=== PATIENT | female | born 1975 | race Caucasian/White ===

== ENCOUNTER → 2017-09-22 | Outpatient (CLI) | payer OTHER ==
--- NOTE | 2017-09-22 08:54 | RADIOLOGY REPORT (SQ) ---
EXAM DESCRIPTION: U/S ABDOMEN LIMITED W/O DOP COMPLETED DATE/TIME: 09/22/2017 8:08 am REASON FOR STUDY: EPIGASTRIC PAIN (R10.13) Z98.84 BARIATRIC SURGERY STATUS R10.13 EPIGASTRIC PAIN COMPARISON: None. TECHNIQUE: Dynamic and static grayscale images acquired of the abdomen and recorded on PACS. Additio nal selected color Doppler and spectral images recorded. LIMITATIONS: None. FINDINGS: PANCREAS: No masses. Visualized pancreatic duct normal caliber. LIVER: No masses. Echotexture normal. LIVER VASCULATURE: Normal directional flow of the main portal vein and hepatic veins. GALLBLADDER: No stones. Normal wall thickness. No pericholecystic fluid. ULTRASOUND-DETECTED QUINONEZ'S SIGN: Negative. INTRAHEPATIC DUCTS AND COMMON DUCT: CBD and intrahepatic ducts normal caliber. No filling defects. INFERIOR VENA CAVA: Normal flow. AORTA: No aneurysm. RIGHT KIDNEY: Normal size. Normal echogenicity. No solid or suspicious masses. No hydronephrosis. No calcifications. PERITONEAL AND RIGHT PLEURAL SPACE: No ascites or effusions. OTHER: No other significant findings. IMPRESSION: NORMAL RIGHT UPPER QUADRANT ULTRASOUND. TECHNICAL DOCUMENTATION: JOB ID: [id number] [employer]- All Rights Reserved
--- NOTE | 2017-09-22 11:01 | RADIOLOGY REPORT (SQ) ---
EXAM DESCRIPTION: NM HIDA SCAN WITH CCK COMPLETED DATE/TIME: 09/22/2017 10:20 am REASON FOR STUDY: EPIGASTRIC PAIN (R10.13) Z98.84 BARIATRIC SURGERY STATUS R10.13 EPIGASTRIC PAIN COMPARISON: None. RADIONUCLIDE AND DOSE: DOSAGE RADIONUCLIDE: 5.36 millicuries Tc99m Mebrofenin. DOSAGE CCK: 1.9 micrograms. DOSAGE MORPHINE: Not required. The route of agent administration: Intravenous TECHNIQUE: Serial imaging right upper quadrant up to 60 minutes following injection of radionuclide. CCK injected after gallbladder visualized. LIMITATIONS: None. FINDINGS: LIVER: Normal visualization without areas of photopenia. INTRAHEPATIC BILE DUCTS: Normal size and no delay in visualization. COMMON BILE DUCT: Normal without dilatation. GALLBLADDER: Normal visualization. Calculated ejection fraction of 29%. Normal range is greater th an 35%. PHYSICAL RESPONSE: Patients presenting complaint was reproduced. OTHER: No other significant finding. IMPRESSION: There is slightly decreased gallbladder ejection fraction of 29% where 35% or greater is considered normal. TECHNICAL DOCUMENTATION: JOB ID: [id number] [employer]- All Rights Reserved
== END ==
LOC: RAD 07:22
PROVIDERS: ATTEND Surgery
DX: Z98.84 Bariatric surgery status (principal); R10.13 Epigastric pain
CPT/HCPCS: 76705; 78227; A9537; Q9969; J2805

== ENCOUNTER 2018-04-01 11:22 | Emergency (ER) | payer OTHER ==
[2018-04-01] MEDS ORDERED: MORPHINE SULFATE 10 MG/ML INJ IV ONE ×2 (11:56→12:24)
--- NOTE | 2018-04-01 11:56 | ER Document Report ---
ED Medical Screen (RME) - General Chief Complaint: Abdominal Pain Stated Complaint: ABDOMINAL PAIN Time Seen by Provider: 04/01/18 11:46 Notes: Patient has been having left upper quadrant abdominal pain now for approximately 3 days. Has a flat band. Recently had it re-inflated. Her bariatric surgeon is Dr. Flores in [place]. Has been having some chills but uncertain whether or not she has fevers. Nausea but no vomiting. No change in stool patterns. Had her gallbladder removed in September and they did a check of everything it looked okay. I have greeted and performed a rapid initial assessment of this patient. A comprehensive ED assessment and evaluation of the patient, analysis of test results and completion of the medical decision making process will be conducted by additional ED providers. TRAVEL OUTSIDE OF THE [place] IN LAST 30 DAYS: No - Related Data Allergies/Adverse Reactions: No Known Allergies Allergy (Unverified 04/01/18 11:23) Past Medical History - General Information source: Patient - Social History Chew tobacco use (# tins/day): No Frequency of alcohol use: None Drug Abuse: None Lives with: Spouse/Significant other Family history: Reviewed & Not Pertinent Renal/ Medical History: Denies: Hx Peritoneal Dialysis Review of Systems - Review of Systems Constitutional: Chills, Fever. denies: Malaise, Weakness EENT: No symptoms reported. denies: Eye pain Cardiovascular: No symptoms reported Gastrointestinal: See HPI, Abdominal pain, Nausea. denies: Diarrhea, Vomiting Genitourinary: No symptoms reported Female Genitourinary: No symptoms reported Musculoskeletal: No symptoms reported Skin: No symptoms reported Physical Exam - Vital signs Vitals: Temp Pulse Resp BP Pulse Ox 98.5 F 97 18 131/85 H 96 04/01/18 11:29 04/01/18 11:29 04/01/18 11:29 04/01/18 11:29 04/01/18 11:29 Interpretation: Tachycardic - Notes Notes: Uncomfortable appearing - Respiratory Respiratory status: No respiratory distress Chest status: Nontender Breath sounds: Normal Chest palpation: Normal - Cardiovascular Rhythm: Tachycardia Heart sounds: Normal auscultation Murmur: No - Abdominal Inspection: Normal Distension: No distension Bowel sounds: Normal Tenderness: Tender, Other - Interest in the left upper quadrant epigastric region Organomegaly: No organomegaly - Neurological Cognition: Normal Orientation: AAOx4 Speech: Normal Course - Vital Signs Vital signs: Temp Pulse Resp BP Pulse Ox 98.5 F 97 18 131/85 H 96 04/01/18 11:29 04/01/18 11:29 04/01/18 11:29 04/01/18 11:29 04/01/18 11:29 Doctor's Discharge - Discharge Referrals: LETY FLORES [Primary Care Provider] - Follow up as needed
[2018-04-01] MEDS ORDERED: NORMAL SALINE 1000 ML 1,000 ML IV ONE (11:57)
[2018-04-01] MEDS ORDERED: ONDANSETRON HCL INJ/PF 4 MG/2 ML SDV IV ONE (11:57)
[2018-04-01 12:10] LABS: ABSOLUTE EOSINOPHILS # (AUTO) 0.1 10^3/uL (0.0-0.6); ABSOLUTE LYMPHOCYTES (AUTO) 1.8 10^3/uL (0.5-4.7); ABSOLUTE MONOCYTES (AUTO) 1.5 10^3/uL (0.1-1.4); ABSOLUTE NEUT (AUTO) 9.7 10^3/uL (1.7-8.2); BASOPHILS % (AUTO) 0.3 % (0-2); EOSINOPHILS % (AUTO) 1.1 % (0-6); HEMATOCRIT 39.9 % (36.0-47.0); HEMOGLOBIN 13.2 g/dL (12.0-15.5); LYMPHOCYTES % (AUTO) 13.6 % (13-45); MEAN CORPUSCULAR HEMOGLOBIN 29.5 pg (27.0-33.4); MEAN CORPUSCULAR HGB CONC 33.2 g/dL (32.0-36.0); MEAN CORPUSCULAR VOLUME 89 fl (80-97); MONOCYTES % (AUTO) 11.2 % (3-13); PLATELET COUNT 360 10^3/uL (150-450); RED BLOOD COUNT 4.49 10^6/uL (3.72-5.28); RED CELL DISTRIBUTION WIDTH 13.8 % (11.5-14.0); SEGMENTED NEUTROPHILS % (AUTO) 73.8 % (42-78); TOTAL CELLS COUNTED % (AUTO) 100 %; WHITE BLOOD COUNT 13.2 10^3/uL (4.0-10.5)
--- NOTE | 2018-04-01 12:16 | ER Document Report ---
ED GI/ - General Chief Complaint: Abdominal Pain Stated Complaint: ABDOMINAL PAIN Time Seen by Provider: 04/01/18 11:46 Information source: Patient Notes: Patient is a 42-year-old female with past medical history of lap band surgery around 4 years ago as well as a cholecystectomy this past September who presents with 3 days of left upper quadrant nonradiating abdominal "sharp pain". She denies any aggravating or relieving factors. She does state it slightly improves when she lays flat. She denies any nausea, vomiting, fevers, dysuria, or lower abdominal pain. Patient is followed by Dr. Daniels at [place]. Patient states 1 year ago she had similar pain that ended up being her gallbladder. She states at that time she had an endoscopy showing that the band was awaiting a little bit into the lumen of the stomach. Her GI surgeon has been following this. TRAVEL OUTSIDE OF THE [place] IN LAST 30 DAYS: No - HPI Patient complains to provider of: Abdominal pain Onset: Other - See above Timing/Duration: Gradual Quality of pain: Other - See above Severity at maximum: Moderate Severity in ED: Mild Pain Level: 3 Location: Other - See above Vaginal bleeding (Compared to normal period): None Sexual history: Inactive Associated symptoms: Other - See above Exacerbated by: Denies Relieved by: Denies Similar symptoms previously: No Recently seen / treated by doctor: No - Related Data Allergies/Adverse Reactions: No Known Allergies Allergy (Unverified 04/01/18 11:23) Past Medical History - General Information source: Patient - Social History Smoking Status: Unknown if Ever Smoked Cigarette use (# per day): No Chew tobacco use (# tins/day): No Smoking Education Provided: No Frequency of alcohol use: None Drug Abuse: None Lives with: Spouse/Significant other Family History: Reviewed & Not Pertinent Patient has suicidal ideation: No Patient has homicidal ideation: No Renal/ Medical History: Denies: Hx Peritoneal Dialysis Review of Systems - Review of Systems Constitutional: denies: Fever EENT: denies: Eye discharge, Nose discharge Cardiovascular: denies: Chest pain, Palpitations Respiratory: denies: Short of breath Gastrointestinal: denies: Vomiting Genitourinary: denies: Dysuria Musculoskeletal: denies: Leg swelling Skin: Other - no hives. denies: Rash Neurological/Psychological: Other - no slurred speech -: Yes All other systems reviewed and negative Physical Exam - Vital signs Vitals: Temp Pulse Resp BP Pulse Ox 98.5 F 97 18 131/85 H 96 04/01/18 11:29 04/01/18 11:29 04/01/18 11:29 04/01/18 11:29 04/01/18 11:29 Interpretation: Normal Notes: Reviewed vital signs and nursing note as charted by RN. CONSTITUTIONAL: Alert and oriented and responds appropriately to questions. Well -appearing; well-nourished HEAD: Normocephalic; atraumatic EYES: Sclerae non-icteric CARD: Regular rate and rhythm; no murmurs, no clicks, no rubs, no gallops; symmetric distal pulses RESP: Normal chest excursion without splinting or tachypnea; breath sounds clear and equal bilaterally ABD/GI: Normal bowel sounds; non-distended; soft, tender to palpation mostly of the left upper quadrant without any obvious rebound or guarding. No palpable masses or abdominal bruits present. No lower abdominal tenderness BACK: The back appears normal and is non-tender to palpation, there is no CVA tenderness EXT: Normal ROM in all joints; non-tender to palpation; no cyanosis, no effusions, no edema SKIN: Normal color for age and race; warm; no acute lesions noted NEURO: Moves all extremities equally; Motor and sensory function intact PSYCH: The patient's mood and manner are appropriate. Grooming and personal hygiene are appropriate. Course - Re-evaluation Re-evalutation: 04/01/18 12:23 Given the above history and physical examination we have ordered basic labs, liver panel, lipase, CT scan of the abdomen and pelvis, and pain medications. We will reassess the patient. I do not believe any other imaging is necessary at this moment. 04/01/18 13:[address] scan of the abdomen and pelvis as recorded. I have called to speak with Dr. Daniels and the on-call surgeon Dr. Hernandez answer the phone. I have read to hold the CT scan report and laboratory results. She asked me to ask the patient if she would like to come to see the surgeon at [facility] today or come as an outpatient to the office on Wednesday or Wednesday. The patient states she is feeling much better and does not want to go to the hospital today but will follow up on Wednesday or Wednesday. Dr. Hernandez has taken the patient's information and will have the patient call on Wednesday morning. She has given me a new address for the location as they have recently moved. Strict return precautions have been explained to the patient and she understands these. is in agreement with this plan. - Vital Signs Vital signs: Temp Pulse Resp BP Pulse Ox 98.5 F 97 18 131/85 H 96 04/01/18 11:29 04/01/18 11:29 04/01/18 11:29 04/01/18 11:29 04/01/18 11:29 - Laboratory Result Diagrams: 04/01/18 11:57 04/01/18 11:57 Laboratory results interpreted by me: 04/01/18 04/01/18 04/01/18 11:32 11:57 11:57 WBC 13.2 H Absolute Neutrophils 9.7 H Absolute Monocytes 1.5 H Potassium 3.5 L AST 12 L Urine Protein 30 H Urine Ketones 20 H Urine Blood LARGE H Discharge - Discharge Clinical Impression: LAP-BAND surgery status Abdominal pain Qualifiers: Abdominal location: left upper quadrant Qualified Code(s): R10.12 - Left upper quadrant pain Condition: Good Disposition: HOME, SELF-CARE Additional Instructions: Come back immediately with any increased pain, fevers, vomiting, change in location or quality of pain, or any other acute problems. Please call Wednesday and tell them that you were seen in the emergency department and that Dr. Hernandez told you to call to have an appointment with the bariatric surgeon on Wednesday or to be fitted into the schedule on Wednesday with Dr. Daniels. They supposedly have a new address which is: [address] [place] [address]. Prescriptions: Oxycodone HCl/Acetaminophen [Percocet 5-325 mg Tablet] 1 - 2 tab PO ASDIR PRN # 15 tablet PRN Reason: Referrals: LETY DANIELS [ACTIVE STAFF] - Follow up as needed
[2018-04-01 12:19] LABS: APPEARANCE,URINE SLIGHTLY-CLOUDY; BILIRUBIN,URINE NEGATIVE (NEGATIVE); COLOR,URINE YELLOW; GLUCOSE, URINE NEGATIVE (NEGATIVE); KETONES,URINE 20 mg/dL (NEGATIVE); LEUKOCYTE ESTERASE,URINE NEGATIVE (NEGATIVE); NITRITE,URINE NEGATIVE (NEGATIVE); PROTEIN,URINE 30 mg/dL (NEGATIVE); URINE SPECIFIC GRAVITY 1.021; UROBILINOGEN,URINE NEGATIVE mg/dL (<2.0)
[2018-04-01 12:36] LABS: ALANINE AMINOTRANSFERASE 19 U/L (9-52); ALKALINE PHOSPHATASE 73 U/L (38-126); ANION GAP 15 (5-19); ASPARTATE AMINO TRANSFERASE 12 U/L (14-36); BILIRUBIN,DIRECT 0.4 mg/dL (0.0-0.4); BILIRUBIN,TOTAL 0.9 mg/dL (0.2-1.3); BLOOD UREA NITROGEN 8 mg/dL (7-20); CALCIUM 9.6 mg/dL (8.4-10.2); CARBON DIOXIDE 28 mmol/L (22-30); CHLORIDE 100 mmol/L (98-107); GLUCOSE 104 mg/dL (75-110); POTASSIUM 3.5 mmol/L (3.6-5.0); SODIUM 142.6 mmol/L (137-145); TOTAL PROTEIN 7.2 g/dL (6.3-8.2)
--- NOTE | 2018-04-01 13:39 | RADIOLOGY REPORT (SQ) ---
EXAM DESCRIPTION: CT ABD/PELVIS WITH IV ORAL COMPLETED DATE/TIME: 04/01/2018 1:20 pm REASON FOR STUDY: abd pain, LUQ pain COMPARISON: 02/28/2009. TECHNIQUE: CT scan of the abdomen and pelvis performed using helical scanning technique with dynamic intravenous contrast injection. No oral contrast. Images reviewed with lung, soft tissue, and bone windows. Reconstructed coronal and sagittal MPR images reviewed. Delayed images for evaluation of the urinary system also acquired. All images stored on PACS. All CT scanners at this facility use dose modulation, iterative reconstruction, and/or weight based d osing when appropriate to reduce radiation dose to as low as reasonably achievable (ALARA). [facility]: Dose Right [facility]: CareDose [facility]: Dose Right [facility]: Teradose 4D [facility]: ENOVIX CONTRAST TYPE AND DOSE: contrast/concentration: Isovue 370.00 mg/ml; Total Contrast Delivered: 98.0 ml; Total Saline Delivered: 61.0 ml RENAL FUNCTION: BUN 8 creatinine 0.63. RADIATION DOSE: CT Rad equipment meets quality standard of care and radiation dose reduction techniq ues were employed. CTDIvol: 14.4 - 19.2 mGy. DLP: 1733 mGy-cm.. LIMITATIONS: None. FINDINGS: LOWER CHEST: No significant findings. No nodules or infiltrates. LIVER: Normal size. No masses. No dilated ducts. SPLEEN: Normal size. No focal lesions. PANCREAS: No masses. No significant calcifications. No adjacent inflammation or peripancreatic fluid collections. Pancreatic duct not dilated. GALLBLADDER: No identified stones by CT criteria. No inflammatory changes to suggest cholecystitis. ADRENAL GLANDS: No significant masses or asymmetry. RIGHT KIDNEY AND URETER: No solid masses. No significant calcifications. No hydronephrosis or hyd roureter. LEFT KIDNEY AND URETER: No solid masses. Small calculus in the lower pole calyx. No hydronephrosi s or hydroureter. AORTA AND VESSELS: No aneurysm. No dissection. Renal arteries, SMA, celiac without stenosis. RETROPERITONEUM: No retroperitoneal adenopathy, hemorrhage or masses. BOWEL AND PERITONEAL CAVITY: Gastric banding hardware. The gastric band surrounds the gastric fundus . There is invagination of the gastric wall and difficult to determine if the gastric wall wraps patel und the banding hardware or if there is erosion into the gastric wall. There is a stranding along th e tubing extending from the gastric band into the peritoneal cavity. No free fluid or peritoneal mas ses. APPENDIX: Normal. PELVIS: No mass. No free fluid. Normal bladder. ABDOMINAL WALL: No masses. No hernias. BONES: No significant or acute findings. OTHER: No other significant finding. IMPRESSION: 1. GASTRIC BANDING HARDWARE. DIFFICULT TO DETERMINE IF THE GASTRIC WALL WRAPS AROUND THE GASTRIC BAN D OR IF THERE IS EROSION OF THE GASTRIC BAND INTO THE GASTRIC WALL. THERE IS ALSO INFLAMMATORY RAWLS E ALONG THE TUBING ADJACENT TO THE GASTRIC BAND. 2. SMALL NONOBSTRUCTING CALYCEAL CALCULUS IN THE LEFT KIDNEY. 3. NO OTHER SIGNIFICANT OR ACUTE FINDING IN THE ABDOMEN OR PELVIS ON CT SCAN WITH IV CONTRAST. TECHNICAL DOCUMENTATION: JOB ID: [id number] Quality ID # [id number]: Final reports with documentation of one or more dose reduction techniques (e.g., Au tomated exposure control, adjustment of the mA and/or kV according to patient size, use of iterative reconstruction technique) 2010 [employer]- All Rights Reserved Reading location - IP/workstation name: [email or web address]
[2018-04-01 14:34] VITALS: BP 117/69
== END 2018-04-01 14:34 | disposition home or self-care (01) ==
LOC: ER 11:22
DX: R10.12 Left upper quadrant pain (principal); Z98.84 Bariatric surgery status
CPT/HCPCS: 99284; 96361; 96374; 96375; 36415; 83690; 85025; 81025; 80053; 81001; 74177; J2270; J2405; J7030